=== PATIENT | female | born 1985 | race Caucasian/White ===

== ENCOUNTER 2017-09-11 05:26 | Day surgery (SDC) | payer BC ==
[~2017-09-11] VITALS: Ht 172.7 cm; Wt 85.8 kg
[~2017-09-11 05:26] MED LIST: Motrin PO; Percocet 5/325,Endoc PO
[2017-09-11 06:02] VITALS: BP 111/81
[2017-09-11] MEDS ORDERED: MOTRIN800 MG PO (08:07)
[2017-09-11] MEDS ORDERED: VICODIN 5-3001 EACH PO (08:07)
[2017-09-11 09:10] VITALS: BP 119/72
== END 2017-09-11 10:57 | disposition home or self-care (01) ==
LOC: SDC 05:26
DX: N92.0 Excessive and frequent menstruation with regular cycle (principal)
CPT/HCPCS: 88305; J1170; J1885; J2250; J2405